=== PATIENT | female | born 1985 | race Caucasian/White ===

== ENCOUNTER 2023-06-15 13:58 | Emergency (ER) | payer OTHER ==
[~2023-06-15] VITALS: Ht 165.1 cm; Wt 70.3 kg
[2023-06-15] MEDS ORDERED: IV NS 0.9% 1,000 ML IV ONE (14:30)
[2023-06-15] MEDS ORDERED: LORAZEPAM INJ 2 MG/ML VIAL IV ONE (14:30)
[2023-06-15] MEDS ORDERED: CHLORDIAZEPOXIDE HCL 25 MG CAPSULE PO ONE (14:30)
[2023-06-15] MEDS ORDERED: CHLORDIAZEPOXIDE HCL 25 MG CAPSULE ONE (14:47)
[2023-06-15] MEDS ORDERED: LORAZEPAM INJ 2 MG/ML VIAL ONE (14:47)
[2023-06-15 16:08] VITALS: BP 126/90; TEMP 98.4; O2SAT 100
== END 2023-06-15 16:09 ==
LOC: ER 14:00
DX: F10.239 Alcohol dependence with withdrawal, unspecified (principal); Z98.890 Other specified postprocedural states; Y90.9 Presence of alcohol in blood, level not specified
CPT/HCPCS: 99283; 96374; 96361; J2060; J7030